=== PATIENT | female | born 1970 | race Caucasian/White ===

== ENCOUNTER 2017-11-21 18:42 | Emergency (ER) | payer SELFPAY ==
[~2017-11-21] VITALS: Ht 175.3 cm; Wt 72.0 kg
[2017-11-21 18:55] VITALS: BP 99/68; PULSE 85; RESP 16; TEMP 98.5; O2SAT 97
[2017-11-21] MEDS ORDERED: KETOROLAC TROMETHAMINE 30 MG/ML (IVP) VIAL IV PUSH ONE (19:45)
[2017-11-21] MEDS ORDERED: HYDROmorphone HCL PF 2 MG/ML VIAL IV PUSH ONE (19:45)
--- NOTE | 2017-11-21 19:54 | PD ---
HPI Chief Complaint: Back/ Neck Pain or Injury Time Seen by Provider: 19:15 Travel History International Travel<30 days: No Contact w/Intl Traveler<30days: No Traveled to known affect area: No History of Present Illness HPI 47-year-old woman who presents to the emergency department complaining of back pain, radiating to the right side, with worsening pain with walking, weakness and difficulty walking. She is a history of chronic back problems. She has had a fusion in the past and an SI fusion in the past. She takes gabapentin daily for her back, oxycodone as needed. She drove over from [employer] today, started having pain earlier in the day, and had worsening symptoms after going in the pool. She otherwise had been feeling well and healthy prior to this. Took some oxycodone but did not help. History Past Medical History Medical History: Denies Significant Hx Social History Alcohol Use: No Tobacco Use: No Allergies-Medications (Allergen,Severity, Reaction): Coded Allergies: No Known Drug Allergies (Verified Allergy, Unknown, 11/21/17) Reported Meds & Prescriptions Reported Meds & Active Scripts Active Reported Oxycodone (Oxycodone HCl) 5 Mg Cap 5 Mg PO Q8H PRN Meloxicam 15 Mg Tab 15 Mg PO DAILY Gabapentin 300 Mg Cap 600 Mg PO TID Review of Systems Except as stated in HPI: all other systems reviewed are Neg Physical Exam Narrative 7:53 PM: Initial evaluation, patient complains of severe pain, is unwilling to lie on her back, sitter, or participate in any strength testing in the lower extremities. Will reassess after pain medications. 8:41 PM GENERAL: 47-year-old woman, lying in bed, comfortable, lying on her side. SKIN: Warm and dry. CARDIOVASCULAR: Warm and well perfused. RESPIRATORY: Normal rate and effort. MUSCULOSKELETAL: Back exam is unremarkable. There is no ecchymosis bruising obvious abnormality. Pain with any range of motion. Pains mostly in the right lower extremity. A little bit tenderness in the right SI joint. Strength is full and equal bilateral lower extremities. Patient unable to participate in gait assessment. Reflexes are symmetric 2+ bilateral patella. Sensations intact to light touch bilateral. NEUROLOGICAL: Awake and alert. No gross deficits. Data Data Last Documented VS Vital Signs Date Time Temp Pulse Resp B/P (MAP) Pulse Ox O2 Delivery O2 Flow Rate FiO2 11/21/17 18:55 98.5 85 16 99/68 (78) 97 Orders Orders Ketorolac Inj (Toradol Inj) (11/21/17 19:45) Iv Access Insert/Monitor (11/21/17 19:41) Hydromorphone Pf Inj (Dilaudid Pf Inj) (11/21/17 19:45) Spine, Lumbar Comp W/Obliq (11/21/17 ) Hydromorphone Pf Inj (Dilaudid Pf Inj) (11/21/17 20:45) MDM Medical Decision Making Medical Screen Exam Complete: Yes Emergency Medical Condition: Yes Differential Diagnosis Sciatica, lumbar strain or sprain, trauma, other Narrative Course Medical decision making 47-year-old woman, nontraumatic low back pain with radiculopathy. Controlled. Patient extremely uncomfortable, unable to ambulate or walk, no obvious focal neurologic deficits. No neurologic symptoms. Will give Toradol, opiates, reassess. Consider imaging. Diagnosis Primary Impression: Back pain Additional Instructions: Take Naprosyn as prescribed. Do not combine with other NSAIDs such as ibuprofen Aleve or meloxicam. Use Percocet as needed for severe pain. Take ranitidine as prescribed. Follow with her primary doctor when you return home. Med/Other Pt SpecificInfo: Prescription(s) given Scripts Ranitidine (Ranitidine) 150 Mg Tab 150 MG PO BID for Heartburn Management, #28 TAB 0 Refills Prov: Kevin Josue MD 11/21/17 Oxycodone-Acetaminophen (Percocet) 5-325 mg Tab 1-2 TAB PO Q6H Y for PAIN, #21 TAB 0 Refills Prov: Kevin Josue MD 11/21/17 Naproxen (Naproxen) 500 Mg Tab 500 MG PO BID, #60 TAB 0 Refills Prov: Kevin Josue MD 11/21/17 Disposition: 01 DISCHARGE HOME Condition: Stable Kevin Josue MD Nov 21, 2017 19:54
[2017-11-21] MEDS ORDERED: MELO15TA20 PO (20:05)
[2017-11-21] MEDS ORDERED: OXYC1CAP PO (20:05)
[2017-11-21] MEDS ORDERED: GABA300C5 PO (20:05)
[2017-11-21] MEDS ORDERED: HYDROmorphone HCL PF 2 MG/ML VIAL IVS ONE (20:45)
--- NOTE | 2017-11-21 21:06 | RADRPT ---
EXAM DATE/TIME: 11/21/2017 20:48 [facility] COMPARISON: No previous studies available for comparison. INDICATIONS : Lower back. No known injuries. Unable to bear weight on right leg. MEDICAL HISTORY : None. SURGICAL HISTORY : Lower back fusion. SI joint fusion. ENCOUNTER: Initial ACUITY: 1 day PAIN SCORE: 10/10 LOCATION: Lower back. FINDINGS: There are five non-rib bearing vertebral bodies. The vertebral bodies are in normal alignment withou t evidence of subluxation or scoliosis. The disc spaces are maintained. The posterior elements are intact without evidence of spondylolysis. The pedicles are intact. Bony mineralization is normal. No fracture is identified. CONCLUSION: Degenerative spondylolisthesis of L4 and L5 with mild facet hypertrophic changes. Marcelo Neville MD on November 21, 2017 at 21:03 Board Certified Radiologist. This report was verified electronically.
[2017-11-21] MEDS ORDERED: RANI150T PO (22:45)
[2017-11-21] MEDS ORDERED: NAPR500T2 PO (22:45)
[2017-11-21] MEDS ORDERED: PERC5TAB12 PO (22:45)
== END 2017-11-21 23:08 | disposition home or self-care (01) ==
LOC: NEPE 18:42
DX: M54.16 Radiculopathy, lumbar region (principal); M43.16 Spondylolisthesis, lumbar region; Z79.899 Other long term (current) drug therapy
CPT/HCPCS: 72110; 96374; 96375; 96376; 99284; J1170; J1885